=== PATIENT | female | born 1960 | race Caucasian/White ===

== ENCOUNTER → 2017-04-11 | Outpatient (CLI) | payer BC, OTHER ==
[~2017-04-11] VITALS: Ht 162.6 cm; Wt 58.5 kg
[~2017-04-11] MED LIST: BUPRENORPHIN-N1 EACH SL; CARVEDILOL3.125 MG PO; CARVEDILOL6.25 MG PO; CELEBREX PO; COQ10-VIT E 101 EACH PO; CORYDALIS; CYMBALTA60 MG PO; DULCOLAX STOOL100 MG PO; ENTRESTO 24 MG1 EACH PO; ENTRESTO 49 MG1 EACH PO; EPLERENONE25 MG PO; FISH OIL 1,001000 M2; FISH OIL 1,001000 M2 PO; FISHOIL; KONSYL1 EACH PO; LASIX 20 MG TAB20 MG PO; LISINOPRIL10 MG PO; MAGNES; METAMUCIL197.2 GM; MIRALAX255 GM PO; MULTIVITAMINS; NUCYNTA ER200 MG PO; SUBOXONE 2 MG-1 EACH SL; SUBOXONE 8 MG-1 EAC1 SL; SUBOXONE 8 MG-1 EAC2 SL; SUBOXONE 8 MG-1 EAC3 SL; SUBOXONE SL; SYNTHROID50 MCG PO; Suboxone 8 Mg-2 Mg T SL
--- NOTE | ~2017-04-11 | HPC ---
[facility] [place] [address] PAIN MANAGEMENT CONSULTATION Name: ERNESTO FISCHER Room #: REG MADIE Patel#: [id number] Admission: 04/11/17 Attend Phys: Jesus Patel DO Discharge: Date of : 56 Report #: [id number] THIS REPORT FOR: //name// CC: Huseyin Patel HISTORY OF PRESENT ILLNESS: The patient is a 56-year-old female being treated for myofascial pain requiring complex medication management. She prior had become intolerant and moderately habituated to aggressive use of hydrocodone. She has been remarkably stable on Suboxone 8/2 b.i.d. for many years. She returns to pain clinic today noting medication is continuing to provide sufficient analgesia to participate in activities of daily living. Last urine drug screen 10/22/2016 was positive for prescribed medications and no others. She notes pain "all over" from chronic fibromyalgia, burning, aching sensation, is down to a 1/10 with current medication. She has continued to be physically active. She goes to the gym, takes care of her home. She has quit smoking some years ago. Rates her subjective pain score again quite low 1/10. PHYSICAL EXAMINATION: Shows a 56-year-old female, BMI is 22.1 kilograms per meter squared, blood pressure 110/76, pulse 74, respirations 14, alert and oriented to person, place, and time, judged to be a reasonable historian. Rises from a chair easily. Gait is tandem. Lower extremity strength is preserved. Diffuse tenderness across the back. No discrete trigger points noted. The patient had a bout of congestive failure last year, the yousuf of her cardiac function was down in the 20s. She has recurred quite nicely. Etiology remains fairly obscure. Again, she is doing well presently. We reviewed the fact that opiate medications are being used to provide analgesia adequate to support activities of daily living, not attempting to achieve a specific pain score on the 0-10 Visual Analog Scale. The current opiate medications are providing sufficient analgesia to allow the patient to participate in activities of daily living. The patient is not exhibiting any aberrant behavior suggestive of drug diversion. The patient is not having any adverse reactions to medications. The patient is not suffering from daytime somnolence or mental acuity changes. The patient is managing opiate-induced constipation with appropriate rchq-apv-vfvblhc agents and dietary considerations. The patient was counseled on concern for caution with operating a motor vehicle while using opiate medications. A physical exam was performed and the patient's functional status was evaluated. All patients with back pain were advised against the bed rest greater than 4 days and were advised to return to normal activities. Pain score assessment was noted and the treatment plan was reviewed with the patient. All current [address] [address] PAIN MANAGEMENT CONSULTATION Name: ERNESTO FISCHER Room #: REG CLI Jorge#: [id number] Admission: 04/11/17 Attend Phys: Jesus Patel DO Discharge: Date of : 56 Report #: [id number] medications, both prescribed and OTC were reviewed and reconciled on the electronic medical record. Tobacco screening was accomplished and smoking cessation was advised when indicated. BMI was noted and diet/exercise modification was recommended for all patients following outside normal parameters. I reviewed with the patient today their responsibilities to safeguard prescription medications, reviewed their responsibility to utilize medications only as prescribed by the physician. They are to seek and receive pain medications only from 1 physician group ([facility]). They are to use 1 pharmacy and keep the clinic informed if they change pharmacies. Their responsibilities include making followup visits in a timely fashion and to avoid abrupt discontinuation of medication usage. Their responsibilities further include bringing their medications (bottles from the pharmacy with residual pills) to the visit for possible confirmation of pill counts and the patient understands it is their responsibility to submit to random drug screens to ensure both that the medications prescribed are present, and that no other controlled substances are present. All prescriptions provided today were generated electronically. ASSESSMENT: Myofascial pain requiring complex medication management. The patient prior habituated to high dose opiates, stable on Suboxone 8/2 b.i.d. using this agent for pain management. We have taken the liberty of renewing current medication for 3 months. Follow up at that time, earlier if needed. By: [id number] Jesus Patel DO /nt
[2017-04-11 13:51] VITALS: BP 110/76
== END | disposition home or self-care (01) ==
LOC: PAIN 07:07
DX: M79.1 Myalgia (principal); G89.29 Other chronic pain; F11.20 Opioid dependence, uncomplicated; Z87.891 Personal history of nicotine dependence

== ENCOUNTER → 2017-07-08 | Outpatient (CLI) | payer BC, OTHER ==
[~2017-07-08] VITALS: Ht 162.6 cm; Wt 58.5 kg
--- NOTE | ~2017-07-08 | HPC ---
[facility] [place] [address] [address] [place] [address] PAIN MANAGEMENT CONSULTATION Name: AMADOERNESTO G Room #: REG [facility] Jorge#: [id number] Admission: 07/08/17 Attend Phys: Jesus Patel DO Discharge: Date of : 56 Report #: [id number] THIS REPORT FOR: //name// CC: Huseyin Patel The patient is a pleasant 57-year-old female well known to the pain clinic, being treated for myofascial pain, fibromyalgia, chronic pain syndrome requiring complex medication management. The patient prior had aggressive titration of hydrocodone, we rotated to Suboxone and she has been remarkably stable on this now for quite some time, she has been on Suboxone I believe since about 2009 and has been stable. The patient does not have any issues with opiate craving, any habituation or tolerance issues. She was last seen in the pain clinic 04/11/2017. She has been stable on this again for some time. She returns to pain clinic today noting pain is getting now a little worse recently with the weather changes. She rates her axial pain is 3 on a VAS. She describes a burning and aching sensation "all over her body." We reviewed the fact that opiate medications are being used to provide analgesia adequate to support activities of daily living, not attempting to achieve a specific pain score on the 0-10 Visual Analog Scale. The current opiate medications are providing sufficient analgesia to allow the patient to participate in activities of daily living. The patient is not exhibiting any aberrant behavior suggestive of drug diversion. The patient is not having any adverse reactions to medications. The patient is not suffering from daytime somnolence or mental acuity changes. The patient is managing opiate-induced constipation with appropriate txwr-tfe-fnjfgkr agents and dietary considerations. The patient was counseled on concern for caution with operating a motor vehicle while using opiate medications. A physical exam was performed and the patient's functional status was evaluated. All patients with back pain were advised against the bed rest greater than 4 days and were advised to return to normal activities. Pain score assessment was noted and the treatment plan was reviewed with the patient. All current medications, both prescribed and OTC were reviewed and reconciled on the electronic medical record. Tobacco screening was accomplished and smoking cessation was advised when indicated. BMI was noted and diet/exercise modification was recommended for all patients following outside normal parameters. I reviewed with the patient today their responsibilities to safeguard prescription medications, reviewed their responsibility to utilize medications [address] [address] PAIN MANAGEMENT CONSULTATION Name: ERNESTO FISCHER Room #: REG CLFabienne Patel#: [id number] Admission: 07/08/17 Attend Phys: Jesus Patel DO Discharge: Date of : 56 Report #: [id number] only as prescribed by the physician. They are to seek and receive pain medications only from 1 physician group ( [facility]). They are to use 1 pharmacy and keep the clinic informed if they change pharmacies. Their responsibilities include making followup visits in a timely fashion and to avoid abrupt discontinuation of medication usage. Their responsibilities further include bringing their medications (bottles from the pharmacy with residual pills) to the visit for possible confirmation of pill counts and the patient understands it is their responsibility to submit to random drug screens to ensure both that the medications prescribed are present, and that no other controlled substances are present. All prescriptions provided today were generated electronically. PHYSICAL EXAMINATION: Shows a 57-year-old female, BMI is 22.1 kg/m2. She quit smoking "years ago." Vital signs are stable as noted in the EMR. Rises from the chair easily. Gait is tandem. Diffuse axial back pain. No discrete trigger points noted. Last random drug screen 10/22/2016, positive for buprenorphine and no others. Prior urine screens had been positive for buprenorphine and occasional ethanol. The patient states that she had drunk one occasionally with dinner. We did review concerns for using multiple central acting agents including narcotics i.e., Suboxone and ethanol. The patient has agreed that she will not use alcohol on any regular basis. I have elected to renew her current Suboxone unchanged, 06/26 b.i.d., dispense 60 tablets with prescriptions to be released today and 4 and 8 weeks. Follow up in 3 months for reevaluation. K-TRACS was reviewed. There were no entries found, the patient fills her prescriptions in [place]. By: [id number] Jesus Patel DO /nt
[2017-07-08 09:09] VITALS: BP 100/65
== END | disposition home or self-care (01) ==
LOC: PAIN 07:07
DX: Z76.0 Encounter for issue of repeat prescription (principal); G89.4 Chronic pain syndrome; M79.7 Fibromyalgia; Z79.891 Long term (current) use of opiate analgesic; Z87.891 Personal history of nicotine dependence; Z88.0 Allergy status to penicillin; Z88.8 Allergy status to other drugs, medicaments and biological substances; Z79.899 Other long term (current) drug therapy

== ENCOUNTER → 2017-12-27 | Outpatient (CLI) | payer BC, OTHER ==
[~2017-12-27] VITALS: Ht 162.6 cm; Wt 59.0 kg
[~2017-12-27] MED LIST changes: +SYMPROIC0.2 MG PO
--- NOTE | ~2017-12-27 | HPC ---
[facility] [place] [address] [place] [address] PAIN MANAGEMENT CONSULTATION Name: ERNESTO FISCHER Room #: REG MADIE Patel#: [id number] Admission: 12/27/17 Attend Phys: Jesus Patel DO Discharge: Date of : 56 Report #: [id number] THIS REPORT FOR: //name// CC: Huseyin Patel DATE OF SERVICE: 12/28/2017 The patient is a 57-year-old female, prior treated for myofascial pain requiring high-risk complex medication management. The patient was last seen in the Pain Clinic on 09/26/2017. Prior buccal swab at that time was positive for prescribed medications and no others (buprenorphine). She prior had issues with opiate escalation on hydrocodone for myofascial pain. She has been remarkably stable on Suboxone 8/2 b.i.d. She has remains physically active, does daily range of motion and stretching. Does not have significant osteoarthritis. BMI is 22.3 kg/m2. Vital signs stable as noted in the EMR. Pain intensity score is fairly low, about 2 on a VAS. She has not fallen in the last 3 months. She is hypertensive. Medication list was reconciled today. Reviewed our opiate consent to treat contract signed on 07/16/2016. Opiate risk assessment tool scores patient actually about moderate risk due to prior history. Functional assessment tool is quite low /70. She does not use tobacco products (former smoker). Drinks alcohol socially. PHYSICAL EXAMINATION: Shows a 57-year-old female, BMI is 22.3 kg/m2. Rises from chair using armrest. Gait is tandem. Diffuse tenderness in the back, neck, shoulders "all over body" from the neck down, fibromyalgia, burning and aching sensation. However, gait is preserved. Lower extremity strength is symmetric. We reviewed the fact that opiate medications are being used to provide analgesia adequate to support activities of daily living, not attempting to achieve a specific pain score on the 0-10 Visual Analog Scale. The current opiate medications are providing sufficient analgesia to allow the patient to participate in activities of daily living. The patient is not exhibiting any aberrant behavior suggestive of drug diversion. The patient is not having any adverse reactions to medications. The patient is not suffering from daytime somnolence or mental acuity changes. The patient is managing opiate-induced constipation with appropriate meec-whl-tlmszmm agents and dietary considerations. The patient was counseled on concern for caution with operating a motor vehicle while using opiate medications. A physical exam was performed and the patient's functional status was evaluated. All patients with back pain were advised against the bed rest greater than 4 days and were advised to return to normal activities. Pain score assessment was noted and the treatment plan was reviewed with the patient. All current [address] [address] PAIN MANAGEMENT CONSULTATION Name: ERNESTO FISCHER Room #: REG MADIE Patel#: [id number] Admission: 12/27/17 Attend Phys: Jesus Patel DO Discharge: Date of : 56 Report #: [id number] medications, both prescribed and OTC were reviewed and reconciled on the electronic medical record. Tobacco screening was accomplished and smoking cessation was advised when indicated. BMI was noted and diet/exercise modification was recommended for all patients following outside normal parameters. I reviewed with the patient today their responsibilities to safeguard prescription medications, reviewed their responsibility to utilize medications only as prescribed by the physician. They are to seek and receive pain medications only from 1 physician group ( [facility]). They are to use 1 pharmacy and keep the clinic informed if they change pharmacies. Their responsibilities include making followup visits in a timely fashion and to avoid abrupt discontinuation of medication usage. Their responsibilities further include bringing their medications (bottles from the pharmacy with residual pills) to the visit for possible confirmation of pill counts and the patient understands it is their responsibility to submit to random drug screens to ensure both that the medications prescribed are present, and that no other controlled substances are present. All prescriptions provided today were generated electronically. ASSESSMENT: Myofascial pain requiring high-risk complex medication management, stable on baseline medication including Suboxone 8/2 b.i.d. We spent a long time today discussing therapeutic options. The patient does a lot of research online. Today, we talked about an ueyn-heu-mvgyddc agent called Corydalis ambigua. Apparently, this is an qztf-hrh-zkengqb herbal agent, which appears possibly have some opiate mu receptor activity (query). We also talked about the general concern for opiate use and the relatively ubiquitous presence of opiates in the [place] in general. The patient has been very aware of the impact of these agents, acknowledging that she herself had been escalated on dose of opiates that were unsustainable. Otherwise, the patient is doing well on current medication. After a prolonged visit, approximately 25 minutes was spent with the patient reviewing therapeutic options, discussing concerns for opiate habituation and tolerance, stressing patient's continued sobriety. We elected to continue Suboxone 8/2 b.i.d. I have taken the liberty of writing for 3 months of current medication. Again, last buccal swab was positive for prescribed medications. Discharged again in stable condition after a 25+ minute visit spent reviewing therapeutic issues with the patient and counseling. <ELECTRONICALLY SIGNED> By: Jesus Patel DO 12/30/17 0715 [id number] Jesus Patel DO /nt
[2017-12-27 11:29] VITALS: BP 120/71
== END ==
LOC: PAIN 07:08
DX: M79.1 Myalgia (principal)

== ENCOUNTER → 2018-10-06 | Outpatient (CLI) | payer BC, OTHER ==
[~2018-10-06] VITALS: Ht 162.6 cm; Wt 59.1 kg
--- NOTE | ~2018-10-06 | HPC ---
[facility] [place] [address] PAIN MANAGEMENT CONSULTATION Name: ERNESTO FISCHER [facility] #: [facility] [id number] Admission: 10/06/18 Attend Phys: Tiffany Song Discharge: Date of : 56 Report #: [id number] THIS REPORT FOR: //name// CC: Tiffany Gibbons DATE OF SERVICE: 10/06/2018 CHIEF COMPLAINT: Followup here today for chronic intractable pain with fibromyalgia and chest wall pain, status post bilateral mastectomy with complications. HISTORY OF PRESENT ILLNESS: The patient returns to the clinic today for followup of her medication, Suboxone. She tells me that she has zero pain today that her pain is doing really good with her current medications. She normally has all over body pain from her neck down due to her fibromyalgia. She said she was surprised due to the weather today of the snowing that she does not feel bad that she said she feels really good. Normally weather and lack of sleep make her pain worse and her medications, heat and exercise help it. She denies constipation today. She states that it is managed with her MiraLax or other medicines and she does not have any daytime sleepiness. She tells me that she continues to do her nonpharmacological techniques that she learned at the [facility] to help her relax. ALLERGIES: DEMEROL AND PENICILLIN. CURRENT MEDICATIONS: Buprenorphine and naloxone 8/2 twice a day, Cymbalta 60 mg once a day, Entresto tablets twice a day, fish oil, CoQ10, Coreg 3.125 three tablets twice daily, Lasix 20 mg daily, eplerenone 25 mg once a day and Synthroid 50 mcg once a day. PQRS: She has no history of osteoarthritis or rheumatoid arthritis, but she does have fibromyalgia. Height 5 feet 4 inches, weight 130, BMI is 22.4. Vital signs: Blood pressure 121/69, pulse is 77, respirations 16, oxygen sat is 100%. Pain score today is 0. The patient is not a fall risk, does not need help walking or standing and has not fallen in the last 3 months. She is not on any blood thinners and does have a history of hypertension. Her opioid therapy is greater than 6 weeks and she has opioid signed contract on the chart. Her risk assessment tool is low and she has a functional assessment of . She tells me she does not use recreational drugs. She is a former smoker and does drink some alcohol. We did check [place] and [place] drug monitoring system. She seems to be filling her Suboxone appropriately from Dr. Carlos Handy in a timely fashion. I noted that her urine drug screen was done a year ago, so we will check a [address] [address] PAIN MANAGEMENT CONSULTATION Name: ERNESTO FISCHER Reilly Room #: REG CL Jorge#: [id number] Admission: 10/06/18 Attend Phys: Tiffany Song Discharge: Date of : 56 Report #: [id number] buccal screen today on her. The patient tells me that she does safeguard her medications. PHYSICAL EXAMINATION: GENERAL: This is a 58-year-old female with a BMI of 22.4. Last drug screen was positive, but for her current medications a year ago. NEUROLOGICAL: She is alert, oriented to person, place, and time, judged to be a reasonable historian. MUSCULOSKELETAL: Rises from chair to standing without any difficulty, does not use the arm rest. Gait is tandem. Lower extremity strength appears to be 5/5 equally. No discrete trigger points are noted today. ASSESSMENT: 1. Chronic intractable chest wall pain. 2. Fibromyalgia. We reviewed the fact that opiate medications are being used to provide analgesia adequate to support activities of daily living, not attempting to achieve a specific pain score on the 0-10 Visual Analog Scale. The current opiate medications are providing sufficient analgesia to allow the patient to participate in activities of daily living. The patient is not exhibiting any aberrant behavior suggestive of drug diversion. The patient is not having any adverse reactions to medications. The patient is not suffering from daytime somnolence or mental acuity changes. The patient is managing opiate-induced constipation with appropriate fkwf-cid-geixmsb agents and dietary considerations. The patient was counseled on concern for caution with operating a motor vehicle while using opiate medications. A physical exam was performed and the patient's functional status was evaluated. All patients with back pain were advised against the bed rest greater than 4 days and were advised to return to normal activities. Pain score assessment was noted and the treatment plan was reviewed with the patient. All current medications, both prescribed and OTC were reviewed and reconciled on the electronic medical record. Tobacco screening was accomplished and smoking cessation was advised when indicated. BMI was noted and diet/exercise modification was recommended for all patients following outside normal parameters. I reviewed with the patient today their responsibilities to safeguard prescription medications, reviewed their responsibility to utilize medications only as prescribed by the physician. They are to seek and receive pain medications only from 1 physician group ([facility]). They are to use 1 pharmacy and keep the clinic informed if they change pharmacies. Their responsibilities include making followup visits in a timely fashion and to avoid abrupt discontinuation of medication usage. Their responsibilities further include bringing their medications (bottles from the pharmacy with residual [address] [address] PAIN MANAGEMENT CONSULTATION Name: ERNESTO FISCHER Room #: REG [facility]#: [id number] Admission: 10/06/18 Attend Phys: Tiffany Song Discharge: Date of : 56 Report #: [id number] pills) to the visit for possible confirmation of pill counts and the patient understands it is their responsibility to submit to random drug screens to ensure both that the medications prescribed are present, and that no other controlled substances are present. All prescriptions provided today were generated electronically. PLAN: 1. The patient is here for refill of her current medications. She tells me that there are helping with her pain control. She rates her pain 0/10 today, so we will renew her Suboxone 8/2 one tablet twice a day for today, 4-week and 8-week refills. 2. Cymbalta 60 mg, #30 with 2 additional refills were also given today. 3. Her last drug year ago, so we will retest her with a buccal swab today. The patient is agreeable with this. 4. The patient will be seen in followup in 3 months by myself then after that she will see Dr. Handy in 6 months for a check. 5. The patient seen in collaboration with Dr. Carlos Handy today. <ELECTRONICALLY SIGNED> By: Tiffany Song 10/08/18 0717 [id number] Tiffany Song /felix
[2018-10-06 08:48] VITALS: BP 121/69
== END ==
LOC: PAIN 06:59
DX: G89.4 Chronic pain syndrome (principal); M79.7 Fibromyalgia; R07.89 Other chest pain; Z79.899 Other long term (current) drug therapy

== ENCOUNTER → 2020-02-01 | Outpatient (CLI) | payer OTHER ==
[~2020-02-01] VITALS: Ht 162.6 cm; Wt 55.7 kg
[~2020-02-01] MED LIST changes: +MULTIVITAMIN; +VITAMIN D32000 UNI2 PO
[2020-02-01 09:02] VITALS: BP 112/73
--- NOTE | 2020-02-01 09:23 | NUR ---
Pain Clinic Assessment: 1. History of Osteoarthritis: Not Applicable History of Rheumatoid Arthritis: Not Applicable 2. Height: 5 ft. 4 in. 162.6 cm. Weight: 122.8 lb. oz. 55.702 kg. Patient's BMI: 21.1 3. Vital Signs: BP: 112/73 Pulse: 85 Resp: 14 Temp: 02 Sat: 99 ECG Mon: 4. Pain Intensity: 2 5. Fall Risk: Dizziness: N Needs help standing or walking: N Fallen in the last 3 months: N Fall risk comments: 6. Patient on Blood Thinner: None 7. History of Hypertension: Y 8. Opioid Therapy greater than 6 weeks: Y Opiate Contract Signed: 07/16/16 9. Risk Assessment Tool Provided: LOW RISK 11/27 10. Functional Assessment Tool: 11. Recreational Drug Use: Never Drug Type: Tobacco Use: Former Smoker Tobacco Type: Cigarettes Amount or Packs/day: 1/2 PPD How Many Years: 4 Alcohol Use: Yes Frequency: Daily Quant: 2-3 GLASSES NIGHT
--- NOTE | 2020-02-01 15:22 | HPC ---
[facility] [address] [place] [address] PAIN MANAGEMENT CONSULTATION Name: ERNESTO FISCHER Room #: REG [facility].#: [id number] Admission: 02/01/20 Attend Phys: Tiffany Song Discharge: Date of : 56 Report #: [id number] THIS REPORT FOR: cc: Holly Ace MD, Yvette L. MD Hocker, Amanda CNS ~ DATE OF SERVICE: 02/01/2020 CHIEF COMPLAINT: Chronic intractable pain with fibromyalgia and chest wall pain post bilateral mastectomies. HISTORY OF PRESENT ILLNESS: This is a very pleasant 59-year-old female who returns to the [facility] after an absence due to insurance issues. She was seeing Dr. Carlos Handy at [facility] for the past year. She now has new insurance and is able to come back to our clinic. The patient reports her pain score is 2/10. It radiates from her neck to her feet. She suffers from chronic fibromyalgia as well as ongoing chest wall pain from her previous mastectomies where she had complications. She does report weather changes increases her pain as well as lack of sleep. She is currently doing quite well. She states Suboxone is very beneficial in controlling most of her pain. She has occasional constipation. She has tried numerous medicines to help relieve this and does manage it. She denies any daytime sleepiness as a result of this medication as well. ALLERGIES: DEMEROL, PENICILLIN. CURRENT LIST OF MEDICATIONS: Vitamin D, multivitamin, Cymbalta 60 mg, Suboxone 8/2, Entresto, CoQ10, carvedilol, Lasix, eplerenone and Synthroid. PQRS: 1. She denies any history of osteoarthritis or rheumatoid arthritis, that she has fibromyalgia. 2. Height is 5 feet 4 inches, weight is 122, BMI is 21. Vital signs, blood pressure 112/73, pulse is 85, respirations 14, oxygen sat is 99. Pain score 2/10. Denies dizziness, does not need help walking or standing, has not fallen in the last 3 months. She is not on any blood thinners, but does take medicine for hypertension. Opioid therapy is greater than 6 weeks; therefore, an opioid signed contract is on the chart. Risk assessment tool is low. Functional assessment is . She denies any recreational drug use. She is a former smoker and does drink 2-3 alcoholic beverages a night. According to the prescription monitoring system, the patient last filled her medications on 12/28/[address] Carlos Handy. She is filling them in a timely fashion. She safeguards her meds at all times. [address] [address] PAIN MANAGEMENT CONSULTATION Name: ERNESTO FISCHER Reilly Room #: REG [facility] Patel#: [id number] Admission: 02/01/20 Attend Phys: Tiffany Song Discharge: Date of : 56 Report #: [id number] PHYSICAL EXAMINATION: GENERAL: This is alert and orientated 59-year-old female who appears her stated age, placing her current pain score at 2/10. She is a good historian. MUSCULOSKELETAL: She has pain in various muscle groups from her neck to her lower back. Lower extremity strength judged to be 5/5 in all major muscle groups. She ambulates without difficulty and moves without difficulty. She does complain of slight chest wall discomfort at her mastectomy surgical sites. ASSESSMENT: 1. Chronic intractable chest wall pain. 2. Fibromyalgia. 3. Medical management under terms of written opioid agreement. We reviewed the fact that opiate medications are being used to provide analgesia adequate to support activities of daily living, not attempting to achieve a specific pain score on the 0-10 Visual Analog Scale. The current opiate medications are providing sufficient analgesia to allow the patient to participate in activities of daily living. The patient is not exhibiting any aberrant behavior suggestive of drug diversion. The patient is not having any adverse reactions to medications. The patient is not suffering from daytime somnolence or mental acuity changes. The patient is managing opiate-induced constipation with appropriate ahrz-sop-vobbcbi agents and dietary considerations. The patient was counseled on concern for caution with operating a motor vehicle while using opiate medications. PLAN: 1. We discussed treatment options with the patient today. The patient is happy to be back at [facility], it was a distance to travel to go to [place] to see Dr. Carlos Handy, though she is continued on her same medications and finds them very beneficial in controlling her pain. We will have Dr. Handy write her Suboxone 06/26 #60 with release for today, 4-week and 8-week. 2. I will send her Cymbalta 60 mg, #30 with 2 additional refills electronically to her pharmacy. 3. The patient will follow up in 3 months. The patient is seen today in collaboration with Dr. Carlos Handy. <ELECTRONICALLY SIGNED> By: Tiffany Song 02/01/20 1522 [id number] Tiffany Song /nt
== END ==
LOC: PAIN 06:36
DX: R07.89 Other chest pain (principal); M79.7 Fibromyalgia; I10 Essential (primary) hypertension; Z88.0 Allergy status to penicillin; Z88.8 Allergy status to other drugs, medicaments and biological substances; Z79.891 Long term (current) use of opiate analgesic; Z79.899 Other long term (current) drug therapy; Z87.891 Personal history of nicotine dependence

== ENCOUNTER → 2020-04-28 | Outpatient (CLI) | payer OTHER ==
[~2020-04-28] VITALS: Ht 162.6 cm; Wt 57.8 kg
[2020-04-28 08:58] VITALS: BP 126/72
--- NOTE | 2020-04-28 09:03 | NUR ---
Pain Clinic Assessment: 1. History of Osteoarthritis: Not Applicable History of Rheumatoid Arthritis: Not Applicable 2. Height: 5 ft. 4 in. 162.6 cm. Weight: 127.4 lb. oz. 57.788 kg. Patient's BMI: 21.9 3. Vital Signs: BP: 126/72 Pulse: 83 Resp: 14 Temp: 02 Sat: 100 ECG Mon: 4. Pain Intensity: 2 5. Fall Risk: Dizziness: N Needs help standing or walking: N Fallen in the last 3 months: N Fall risk comments: 6. Patient on Blood Thinner: None 7. History of Hypertension: Y 8. Opioid Therapy greater than 6 weeks: Y Opiate Contract Signed: 07/16/16 9. Risk Assessment Tool Provided: LOW RISK 11/27 10. Functional Assessment Tool: 11. Recreational Drug Use: Never Drug Type: Tobacco Use: Former Smoker Tobacco Type: Amount or Packs/day: How Many Years: Alcohol Use: Yes Frequency: Special Occasions Quant: 1
--- NOTE | 2020-04-28 16:30 | HPC ---
[facility] [address] [address] PAIN MANAGEMENT CONSULTATION Name: ERNESTO FISCHER Room #: REG [facility].#: [id number] Admission: 04/28/20 Attend Phys: Tiffany Song Discharge: Date of : 56 Report #: [id number] THIS REPORT FOR: cc: Holly Ace MD, Yvette L. MD Hocker, Amanda CNS ~ CC: Carlos Handy MD DATE OF SERVICE: 04/28/2020 CHIEF COMPLAINT: Chronic intractable pain with fibromyalgia and chest wall pain related to bilateral mastectomies. HISTORY OF PRESENT ILLNESS: This is a very pleasant 60-year-old female who complains of generalized pain due to her fibromyalgia as well as ongoing chest wall pain from previous mastectomies. She reports that the Suboxone is very beneficial in controlling her pain, rating at a 2/10 today. She states she "does not think about her pain" as long as she takes her pain pills in the morning and the evening. It does increase sometimes with weather changes or lack of sleep, but she finds that her medication as well as exercise and occasional heat to her chest wall are very beneficial. She denies problems with constipation or daytime somnolence. Today, she would like refills of her Suboxone as well as her Cymbalta. ALLERGIES: DEMEROL AND PENICILLIN. MEDICATIONS: Suboxone 8/2 b.i.d., Cymbalta 60 mg, vitamin D, multivitamin, Entresto, CoQ10, Coreg, Lasix, eplerenone and Synthroid. PQRS: 1. She denies history of osteoarthritis or rheumatoid arthritis, but does have fibromyalgia. 2. Height is 5 feet 4 inches, weight is 127, BMI is 21. 3. Vital signs 126/72, pulse is 83, respirations 14, oxygen sat is 100. 4. Pain score is 2. 5. Fall risk. Denies dizziness, does not need help walking or standing, has not fallen in the last 3 months. 6. The patient is not on any blood thinners, but does take medicine for hypertension. Opioid therapy is greater than 6 weeks; therefore, an opioid signed contract is on the chart. Risk assessment tool is low. Functional assessment is . 7. Recreational drug use, she denies. She is a former smoker and occasionally drinks alcohol. According to the prescription monitoring system, the patient is filling appropriately for her medications in a timely fashion. She is due to fill her [address] [address] PAIN MANAGEMENT CONSULTATION Name: ERNESTO FISCHER Room #: REG [facility]#: [id number] Admission: 04/28/20 Attend Phys: Tiffany Song Discharge: Date of : 56 Report #: [id number] medications this week. PHYSICAL EXAMINATION: GENERAL: This is a well-developed, well-nourished, well-hydrated 60-year-old female who appears her stated age, placing her current pain score 2/10. HEENT: Normocephalic, atraumatic. Extraocular eye muscles are intact. Mucous membranes are moist. MUSCULOSKELETAL: She rises from the chair using the armrest. Her gait is tandem. She has lower extremity strength symmetrical. No discrete trigger points noted today. Slight tenderness in her right chest wall. ASSESSMENT: 1. Chronic intractable chest wall pain. 2. Fibromyalgia. 3. Medical management utilizing written opioid medications. We reviewed the fact that opiate medications are being used to provide analgesia adequate to support activities of daily living, not attempting to achieve a specific pain score on the 0-10 Visual Analog Scale. The current opiate medications are providing sufficient analgesia to allow the patient to participate in activities of daily living. The patient is not exhibiting any aberrant behavior suggestive of drug diversion. The patient is not having any adverse reactions to medications. The patient is not suffering from daytime somnolence or mental acuity changes. The patient is managing opiate-induced constipation with appropriate kwqd-wkz-adweymm agents and dietary considerations. The patient was counseled on concern for caution with operating a motor vehicle while using opiate medications. A physical exam was performed and the patient's functional status was evaluated. All patients with back pain were advised against the bed rest greater than 4 days and were advised to return to normal activities. Pain score assessment was noted and the treatment plan was reviewed with the patient. All current medications, both prescribed and OTC were reviewed and reconciled on the electronic medical record. Tobacco screening was accomplished and smoking cessation was advised when indicated. BMI was noted and diet/exercise modification was recommended for all patients following outside normal parameters. I reviewed with the patient today their responsibilities to safeguard prescription medications, reviewed their responsibility to utilize medications only as prescribed by the physician. They are to seek and receive pain medications only from 1 physician group ( [facility]). They are to use 1 pharmacy and keep the clinic informed if they change pharmacies. Their responsibilities include making followup visits in a timely fashion and to avoid abrupt discontinuation of medication usage. Their responsibilities further include bringing their medications (bottles from the pharmacy with residual [address] [address] PAIN MANAGEMENT CONSULTATION Name: ERNESTO FISCHER Room #: REG [facility] Patel#: [id number] Admission: 04/28/20 Attend Phys: Tiffany Song Discharge: Date of : 56 Report #: [id number] pills) to the visit for possible confirmation of pill counts and the patient understands it is their responsibility to submit to random drug screens to ensure both that the medications prescribed are present, and that no other controlled substances are present. All prescriptions provided today were generated electronically. PLAN: 1. We discussed treatment options with the patient today. The patient is doing very well on her current regimen of medications. We will have Dr. Handy write for her Suboxone 06/26, #60 for today for an 8-week. She uses this for her chronic pain. 2. I will send electronically Cymbalta 60 mg, #30 with one additional refill. The patient will return to the clinic in 3 months. The patient seen in collaboration with Dr. Carlos Handy. <ELECTRONICALLY SIGNED> By: Tiffany Song 04/28/20 1630 0922 [id number] Tiffany Song /felix
== END ==
LOC: PAIN 06:49
DX: G89.29 Other chronic pain (principal); M79.7 Fibromyalgia; R07.89 Other chest pain; Z79.899 Other long term (current) drug therapy; Z88.0 Allergy status to penicillin; Z79.891 Long term (current) use of opiate analgesic

== ENCOUNTER → 2020-07-28 | Outpatient (CLI) | payer OTHER ==
[~2020-07-28] VITALS: Ht 162.6 cm; Wt 57.7 kg
--- NOTE | ~2020-07-28 | HPC ---
[facility] [place] [address] PAIN MANAGEMENT CONSULTATION Name: ERNESTO FISCHER [id number] Admission: 07/28/20 Attend Phys: Carlos Handy MD Discharge: Date of : 56 Report #: [id number] THIS REPORT FOR: cc: Holly Ace MD, Yvette L. MD Morgan, Richard L. MD ~ CC: Carlos Ace DATE OF SERVICE: 07/28/2020 Followup visit for chronic intractable pain with fibromyalgia. The patient returns to pain clinic today for renewal of her buprenorphine and naloxone. She has been using now for almost 10 years. She uses it as a pain medicine not for addiction. This worked very well for her. Her pain scores remain low at 1. She has no side effects, has improvement in her day-to-day function. This has been really a miracle drug for her. Given her good response to this medicine, we continued it without change. She carefully safeguards her medicines. Today, she reports that she has some discomfort from neck to the top of her feet, but it is manageable at a 1/10. It is worsened by weather and lack of sleep. PHYSICAL EXAMINATION: GENERAL: She is a pleasant 60-year-old. VITAL SIGNS: Blood pressure is 144/87, heart rate 75, respirations 14, O2 sat 100, BMI is 21.8. She moves independently and walks with a stable gait. Diffuse myofascial pains are noted. IMPRESSION: 1. Fibromyalgia. 2. Chronic intractable chest wall pain. 3. Medication management under terms of written opioid agreement. PLAN: Medications were renewed for 3 months under terms of our agreement. We reviewed the important aspects of safeguarding the medication, remaining active. She will do so and plans to see us back in the clinic sometime in September. By: [id number] [id number] Carlos Handy MD /nt
[2020-07-28 13:39] VITALS: BP 144/87
--- NOTE | 2020-07-28 13:52 | NUR ---
Pain Clinic Assessment: 1. History of Osteoarthritis: Not Applicable History of Rheumatoid Arthritis: Not Applicable 2. Height: 5 ft. 4 in. 162.6 cm. Weight: 127.2 lb. oz. 57.697 kg. Patient's BMI: 21.8 3. Vital Signs: BP: 144/87 Pulse: 75 Resp: 14 Temp: 02 Sat: 100 ECG Mon: 4. Pain Intensity: 1 5. Fall Risk: Dizziness: N Needs help standing or walking: N Fallen in the last 3 months: N Fall risk comments: 6. Patient on Blood Thinner: None 7. History of Hypertension: Y 8. Opioid Therapy greater than 6 weeks: Y Opiate Contract Signed: 07/16/16 9. Risk Assessment Tool Provided: LOW RISK 11/27 10. Functional Assessment Tool: 11. Recreational Drug Use: Never Drug Type: Tobacco Use: Former Smoker Tobacco Type: Amount or Packs/day: How Many Years: Alcohol Use: Yes Frequency: Daily Quant: 2
== END ==
LOC: PAIN 06:55
PROVIDERS: ATTEND Anesthesiology Pain Medicine
DX: M79.7 Fibromyalgia (principal); G89.29 Other chronic pain; F11.20 Opioid dependence, uncomplicated

== ENCOUNTER → 2020-10-27 | Outpatient (CLI) | payer OTHER ==
[~2020-10-27] VITALS: Ht 162.6 cm; Wt 59.6 kg
[~2020-10-27] MED LIST changes: +DULOXETINE HCL60 MG PO
[2020-10-27 10:48] VITALS: BP 140/77
--- NOTE | 2020-10-27 10:52 | NUR ---
Pain Clinic Assessment: 1. History of Osteoarthritis: Not Applicable History of Rheumatoid Arthritis: Not Applicable 2. Height: 5 ft. 4 in. 162.6 cm. Weight: 131.4 lb. oz. 59.603 kg. Patient's BMI: 22.5 3. Vital Signs: BP: 140/77 Pulse: 77 Resp: 16 Temp: 02 Sat: 100 ECG Mon: 4. Pain Intensity: 2 5. Fall Risk: Dizziness: N Needs help standing or walking: N Fallen in the last 3 months: N Fall risk comments: 6. Patient on Blood Thinner: None 7. History of Hypertension: Y 8. Opioid Therapy greater than 6 weeks: Y Opiate Contract Signed: 07/16/16 9. Risk Assessment Tool Provided: LOW RISK 11/27 10. Functional Assessment Tool: 11. Recreational Drug Use: Never Drug Type: Tobacco Use: Former Smoker Tobacco Type: Amount or Packs/day: How Many Years: Alcohol Use: Yes Frequency: Quant:
--- NOTE | 2020-11-01 07:40 | HPC ---
[facility] [place] [address] PAIN MANAGEMENT CONSULTATION Name: ERNESTO FISCHER Room #: REG [facility].#: [id number] Admission: 10/27/20 Attend Phys: Tiffany Song Discharge: Date of : 56 Report #: [id number] THIS REPORT FOR: cc: Holly Ace MD, Yvette L. MD Hocker, Amanda CNS ~ CC: Tiffayn Handy MD DATE OF SERVICE: 10/27/2020 CHIEF COMPLAINT: Chronic intractable pain with fibromyalgia. HISTORY OF PRESENT ILLNESS: This is a pleasant 60-year-old female who returns to the clinic today for her renewal of buprenorphine. The patient is rating her pain score of 2/10 today, feels like this medication is very beneficial in controlling her chronic pain and fibromyalgia. Her pain is mostly located from her neck down to her lower back and radiates into her feet. It is an aching, burning sensation that does increase significantly with weather changes or lack of sleep. She does suffer from fibromyalgia as well. She believes the medication as well as heat and exercise are very beneficial. She would like refills of this medication today. She denies any problems with constipation and safeguards her meds at all times. ALLERGIES: DEMEROL, AND PENICILLIN. CURRENT LIST OF MEDICATIONS: Suboxone 8/2 b.i.d., Cymbalta 60 mg daily, vitamin D, multivitamin, Entresto, CoQ10, Coreg, Lasix, eplerenone and Synthroid. THE PATIENT'S PQRS: 1. She denies history of osteoarthritis or rheumatoid arthritis. 2. Height is 5 feet 4 inches, weight is 131, BMI is 22. 3. Vital signs 140/77, pulse is 77, respirations 16, oxygen sat is 100. 4. Pain score is 2/10. 5. Denies dizziness, does not need help walking or standing, has not fallen in the last 3 months. 6. The patient is not on any blood thinners, but does take medicine for hypertension. 7. Opioid therapy is greater than 6 weeks; therefore, an opioid signed contract is on the chart. Risk assessment is low. 8. Functional assessment . 9. Recreational drug use, she denies she is a former smoker and occasionally drinks alcohol. According to the prescription monitoring system, the patient is filling appropriately her medications. There is a drug screen on the chart and we will [address] [address] PAIN MANAGEMENT CONSULTATION Name: ERNESTO FISCHER Room #: REG [facility]#: [id number] Admission: 10/27/20 Attend Phys: Tiffany Song Discharge: Date of : 56 Report #: [id number] recheck this in the next visit. She fills only from Dr. Carlos Handy for her medications. PHYSICAL EXAMINATION: GENERAL: This is alert and orientated, well-developed, well-nourished 60-year-old who is rating her pain score today at 2. She is a good historian with an appropriate affect. HEENT: Normocephalic, atraumatic. Extraocular eye muscles are intact. MUSCULOSKELETAL: Her pain is diffuse and several muscle groups for myofascial pain are noted. She does move independently from the seated to standing position. Pain is in her neck and does radiate in her lumbosacral region, as well as into her lower extremities. She has slight tenderness in her right chest wall with no discrete trigger points noted today. ASSESSMENT: 1. Fibromyalgia. 2. Chronic intractable chest wall pain. 3. Medication management under terms of written opioid agreement. We reviewed the fact that opiate medications are being used to provide analgesia adequate to support activities of daily living, not attempting to achieve a specific pain score on the 0-10 Visual Analog Scale. The current opiate medications are providing sufficient analgesia to allow the patient to participate in activities of daily living. The patient is not exhibiting any aberrant behavior suggestive of drug diversion. The patient is not having any adverse reactions to medications. The patient is not suffering from daytime somnolence or mental acuity changes. The patient is managing opiate-induced constipation with appropriate jtmx-kuq-xseqjhf agents and dietary considerations. The patient was counseled on concern for caution with operating a motor vehicle while using opiate medications. PLAN: 1. We discussed treatment options with the patient today. The patient finds her medications very beneficial in allowing her to be as active as she would like. She does safeguard her meds at all time. We will continue her on her Suboxone 06/26 b.i.d. Scripts will be given to her to take to her pharmacy for her chronic pain issues for today, for an 8-week supply. 2. I will continue her on her Cymbalta 60 mg, #30, with 3 additional refills; will be sent electronically to her pharmacy. The patient recently filled her last Suboxone use. She will probably return to the clinic in January. At that time, we will repeat a urine drug screen on her. The patient is seen today in collaboration with Dr. Carlos Handy who did see the patient as well. <ELECTRONICALLY SIGNED> By: Tifafny Song 11/01/20 0740 [id number] Tiffany Song /felix
== END ==
LOC: PAIN 06:44
PROVIDERS: ATTEND Clinical Nurse Specialist Adult Health
DX: M79.7 Fibromyalgia (principal); G89.29 Other chronic pain; F11.20 Opioid dependence, uncomplicated; Z79.899 Other long term (current) drug therapy; Z88.8 Allergy status to other drugs, medicaments and biological substances

== ENCOUNTER → 2021-01-23 | Outpatient (CLI) | payer OTHER ==
[~2021-01-23] VITALS: Ht 162.6 cm; Wt 56.1 kg
[2021-01-23 10:46] VITALS: BP 118/74
--- NOTE | 2021-01-23 11:00 | NUR ---
Pain Clinic Assessment: 1. History of Osteoarthritis: Not Applicable History of Rheumatoid Arthritis: Not Applicable 2. Height: 5 ft. 4 in. 162.6 cm. Weight: 123.6 lb. oz. 56.064 kg. Patient's BMI: 21.2 3. Vital Signs: BP: 118/74 Pulse: 83 Resp: 14 Temp: 02 Sat: 100 ECG Mon: 4. Pain Intensity: 0 5. Fall Risk: Dizziness: N Needs help standing or walking: N Fallen in the last 3 months: N Fall risk comments: 6. Patient on Blood Thinner: None 7. History of Hypertension: Y 8. Opioid Therapy greater than 6 weeks: Y Opiate Contract Signed: 07/16/16 9. Risk Assessment Tool Provided: LOW RISK 11/27 10. Functional Assessment Tool: 11. Recreational Drug Use: Never Drug Type: Tobacco Use: Former Smoker Tobacco Type: Cigarettes Amount or Packs/day: 1/2 How Many Years: 3 Alcohol Use: Yes Frequency: Daily Quant: 1-2 glasses
--- NOTE | 2021-01-24 08:22 | HPC ---
[facility] [address] [place] [address] PAIN MANAGEMENT CONSULTATION Name: ERNESTO FISCHER [id number] Admission: 01/23/21 Attend Phys: Tiffany Song Discharge: Date of : 56 Report #: [id number] THIS REPORT FOR: cc: Holly Ace MD, Yvette L. MD Hocker, Amanda CNS ~ DATE OF SERVICE: 01/23/2021 CHIEF COMPLAINT: Chronic intractable pain and fibromyalgia. HISTORY OF PRESENT ILLNESS: This is a 60-year-old female who returns to the pain clinic for treatment of her ongoing chronic pain that affects her neck that radiates into her back into her legs. She has significant fibromyalgia and is being treated with Suboxone that has been very beneficial in helping relieve her pain. She today reports no pain. Occasionally, it is a deep burning ache, but believes if she continues her medication twice a day that she is very well controlled. Today, she does report when she has pain, it feels like a flu with deep summer. It is worse with weather changes and lack of sleep. Overall as long as she takes her medication and does exercise, she feels quite well. Today, she is reporting some constipation issues and is wondering what medication she should take. She does not like the taste of Metamucil and feels it makes her bloated. ALLERGIES: DEMEROL AND PENICILLIN. CURRENT LIST OF MEDICATIONS: Duloxetine, Suboxone 06/26 b.i.d., vitamin D, multivitamin, Entresto, CoQ10, carvedilol, Lasix, eplerenone and Synthroid. PQRS: 1. She denies osteoarthritis or rheumatoid arthritis. 2. Height is 5 feet 4 inches, weight is 123, BMI is 21. 3. Vital signs 118/74, pulse is 83, respirations 14, oxygen sat is 100. 4. Pain score is 0. Fall risk. Denies dizziness, does not need help standing or walking, has not fallen in the last 3 months. The patient is not on any blood thinners, but does take medicine for hypertension. Her opioid therapy is greater than 6 weeks; therefore, an opioid signed contract is on the chart. Risk assessment is low. Functional assessment . 5. Recreational drug use, she denies. She is a former smoker and occasionally drinks alcohol. According to the prescription monitoring system, she is filling appropriately and due to fill her medications today. We will check a random drug screen on her today. It has been greater than one year. PHYSICAL EXAMINATION: GENERAL: This is alert and orientated, well-developed, [place] [address] PAIN MANAGEMENT CONSULTATION Name: ERNESTO FISCHER Room #: REG [facility] Patel#: [id number] Admission: 01/23/21 Attend Phys: Tiffany Song Discharge: Date of : 56 Report #: [id number] 60-year-old female who is answering all the questions appropriately. Her speech is fluent and she is a good historian, rating her pain as 0 out of 10. HEENT: Normocephalic, atraumatic. Extraocular eye muscles are intact. She is wearing a mask. MUSCULOSKELETAL: She rises from chair using the armrest. Her gait is tandem. Lower extremity strength is symmetrical. No discrete trigger points noted today. ASSESSMENT: 1. Fibromyalgia. 2. Chronic intractable chest wall pain. 3. Management of medications under terms of written opioid agreement. Continue Suboxone for chronic pain. We reviewed the fact that opiate medications are being used to provide analgesia adequate to support activities of daily living, not attempting to achieve a specific pain score on the 0-10 Visual Analog Scale. The current opiate medications are providing sufficient analgesia to allow the patient to participate in activities of daily living. The patient is not exhibiting any aberrant behavior suggestive of drug diversion. The patient is not having any adverse reactions to medications. The patient is not suffering from daytime somnolence or mental acuity changes. The patient is managing opiate-induced constipation with appropriate kpjf-slr-ywchdxr agents and dietary considerations. The patient was counseled on concern for caution with operating a motor vehicle while using opiate medications. A physical exam was performed and the patient's functional status was evaluated. All patients with back pain were advised against the bed rest greater than 4 days and were advised to return to normal activities. Pain score assessment was noted and the treatment plan was reviewed with the patient. All current medications, both prescribed and OTC were reviewed and reconciled on the electronic medical record. Tobacco screening was accomplished and smoking cessation was advised when indicated. BMI was noted and diet/exercise modification was recommended for all patients following outside normal parameters. I reviewed with the patient today their responsibilities to safeguard prescription medications, reviewed their responsibility to utilize medications only as prescribed by the physician. They are to seek and receive pain medications only from 1 physician group ([facility]). They are to use 1 pharmacy and keep the clinic informed if they change pharmacies. Their responsibilities include making followup visits in a timely fashion and to avoid abrupt discontinuation of medication usage. Their responsibilities further include bringing their medications (bottles from the pharmacy with residual pills) to the visit for possible confirmation of pill counts and the patient understands it is their responsibility to submit to random drug screens to [place] [id number] PAIN MANAGEMENT CONSULTATION Name: ERNESTO FISCHER Room #: REG [facility].#: [id number] Admission: 01/23/21 Attend Phys: Tiffany Song Discharge: Date of : 56 Report #: [id number] ensure both that the medications prescribed are present, and that no other controlled substances are present. All prescriptions provided today were generated electronically. PLAN: 1. We discussed treatment options with the patient today. The patient feels the buprenorphine is very significant in controlling her pain as well as taking her Cymbalta would like renewal as above. We will continue her on 06/26 twice a day. Scripts will be given to the patient for today, 4-week and 8-week supply by Dr. Carlos Handy. 2. I will send her Cymbalta that she takes for neuropathic pain as well as her depression to the pharmacy, 60 mg #30 with 5 additional refills. 3. We did discuss the patient is scheduled for the COVID vaccine on Saturday. She does have history of cancer as well as heart issues. She is thankful to finally be chosen to get the vaccine. We did discuss taking Tylenol after her second dose to prevent any malaise she may experience. 4. We did discuss constipation, encouraging her to take MiraLax as needed for constipation issues. 5. The patient's is changing jobs; therefore, she will need a different insurance. We did discuss options. The patient may need to come in early for an appointment. Based on when this current insurance terms, we discussed possibly going to [facility] and see Dr. Carlos Handy or [place]. The patient will discuss with different desks her new insurance, which she finds what carrier will be. 6. The patient is seen today in collaboration with Dr. Carlos Handy. <ELECTRONICALLY SIGNED> By: Tiffany Song 01/24/21 0822 [id number] 1946 Tiffany Song /nt
== END ==
LOC: PAIN 06:51
PROVIDERS: ATTEND Clinical Nurse Specialist Adult Health
DX: M79.7 Fibromyalgia (principal); G89.4 Chronic pain syndrome; Z79.899 Other long term (current) drug therapy; Z79.891 Long term (current) use of opiate analgesic

== ENCOUNTER → 2021-03-23 | Outpatient (CLI) | payer OTHER ==
[~2021-03-23] VITALS: Ht 162.6 cm; Wt 57.7 kg
[2021-03-23 10:44] VITALS: BP 118/80
--- NOTE | 2021-03-23 10:47 | NUR ---
Pain Clinic Assessment: 1. History of Osteoarthritis: Not Applicable History of Rheumatoid Arthritis: Not Applicable 2. Height: 5 ft. 4 in. 162.6 cm. Weight: 127.2 lb. oz. 57.697 kg. Patient's BMI: 21.8 3. Vital Signs: BP: 118/80 Pulse: 76 Resp: 18 Temp: 02 Sat: 99 ECG Mon: 4. Pain Intensity: 2 WITH MEDS 5. Fall Risk: Dizziness: N Needs help standing or walking: N Fallen in the last 3 months: N Fall risk comments: 6. Patient on Blood Thinner: None 7. History of Hypertension: Y 8. Opioid Therapy greater than 6 weeks: Y Opiate Contract Signed: 07/16/16 9. Risk Assessment Tool Provided: LOW RISK 11/27 10. Functional Assessment Tool: 11. Recreational Drug Use: Never Drug Type: Tobacco Use: Former Smoker Tobacco Type: Amount or Packs/day: How Many Years: Alcohol Use: Yes Frequency: Quant:
== END ==
LOC: PAIN 09:52
PROVIDERS: ATTEND Clinical Nurse Specialist Adult Health
DX: G89.4 Chronic pain syndrome (principal); M79.7 Fibromyalgia; Z79.891 Long term (current) use of opiate analgesic; Z79.899 Other long term (current) drug therapy

== ENCOUNTER → 2021-07-27 | Outpatient (CLI) | payer OTHER ==
[~2021-07-27] VITALS: Ht 162.6 cm; Wt 54.7 kg
[2021-07-27 11:10] VITALS: BP 109/79
--- NOTE | 2021-07-27 11:22 | NUR ---
Pain Clinic Assessment: 1. History of Osteoarthritis: Not Applicable History of Rheumatoid Arthritis: Not Applicable 2. Height: 5 ft. 4 in. 162.6 cm. Weight: 120.6 lb. oz. 54.704 kg. Patient's BMI: 20.7 3. Vital Signs: BP: 109/79 Pulse: 79 Resp: 14 Temp: 02 Sat: 100 ECG Mon: 4. Pain Intensity: 1 with meds 5. Fall Risk: Dizziness: N Needs help standing or walking: N Fallen in the last 3 months: N Fall risk comments: 6. Patient on Blood Thinner: None 7. History of Hypertension: Y 8. Opioid Therapy greater than 6 weeks: Y Opiate Contract Signed: 07/16/16 9. Risk Assessment Tool Provided: LOW RISK 11/27 10. Functional Assessment Tool: 11. Recreational Drug Use: Never Drug Type: Tobacco Use: Former Smoker Tobacco Type: Amount or Packs/day: How Many Years: Alcohol Use: Yes Frequency: Daily Quant: 2 glasses wine in evening
== END ==
LOC: PAIN 08:20
PROVIDERS: ATTEND Clinical Nurse Specialist Adult Health
DX: M79.7 Fibromyalgia (principal); G89.29 Other chronic pain; Z79.899 Other long term (current) drug therapy; Z79.891 Long term (current) use of opiate analgesic; Z88.8 Allergy status to other drugs, medicaments and biological substances; Z87.891 Personal history of nicotine dependence

== ENCOUNTER → 2021-10-26 | Outpatient (CLI) | payer OTHER ==
[~2021-10-26] VITALS: Ht 162.6 cm; Wt 54.9 kg
[2021-10-26 11:09] VITALS: BP 101/62
--- NOTE | 2021-10-26 11:16 | NUR ---
Pain Clinic Assessment: 1. History of Osteoarthritis: Not Applicable History of Rheumatoid Arthritis: Not Applicable 2. Height: 5 ft. 4 in. 162.6 cm. Weight: 121.0 lb. oz. 54.885 kg. Patient's BMI: 20.8 3. Vital Signs: BP: 101/62 Pulse: 87 Resp: 14 Temp: 02 Sat: 100 ECG Mon: 4. Pain Intensity: 2 5. Fall Risk: Dizziness: N Needs help standing or walking: N Fallen in the last 3 months: N Fall risk comments: 6. Patient on Blood Thinner: None 7. History of Hypertension: Y 8. Opioid Therapy greater than 6 weeks: Y Opiate Contract Signed: 07/16/16 9. Risk Assessment Tool Provided: LOW RISK 11/27 10. Functional Assessment Tool: 11. Recreational Drug Use: Never Drug Type: Tobacco Use: Former Smoker Tobacco Type: Amount or Packs/day: How Many Years: Alcohol Use: Yes Frequency: Daily Quant: 2-3
== END ==
LOC: PAIN 06:56
PROVIDERS: ATTEND Anesthesiology Pain Medicine
DX: G89.29 Other chronic pain (principal); M79.7 Fibromyalgia; Z88.0 Allergy status to penicillin; Z88.8 Allergy status to other drugs, medicaments and biological substances; Z79.899 Other long term (current) drug therapy